=== PATIENT | male | born 2000 | race African-American/Black ===

== ENCOUNTER 2018-09-22 12:22 | Emergency (ER) | payer OTHER ==
[2018-09-22 12:32] VITALS: BP 130/78; PULSE 64; TEMP 98; BMI 33.2
--- NOTE | 2018-09-22 14:17 | PDOC ---
History of Present Illness - General Chief Complaint: Rectal Bleed Stated Complaint: ABD PAIN/ RECTAL BLEED Time Seen by Provider: 09/22/18 13:21 History Source: Patient Exam Limitations: No Limitations - History of Present Illness Travel History: No Initial Comments: 09/22/18 14:18 18-year-old male with no past medical history except for borderline Asperger's/ autism presents to ED for evaluation of blood noted on tissue 2 over the past 3 days. Patient states was initially itching prior to the onset of the bleeding and was unsure if he scratched himself. Patient denies recent constipation, placement of objects in his rectum, abdominal pain, fever, chills or nausea. Timing/Duration: reports: gone now Quality: reports: mild (Rectal itching) Activities at Onset: reports: none Aggravating Factors: improves with: None Alleviating Factors: improves with: None Past History - Travel Traveled outside of the country in the last 30 days: No - Past Medical History Allergies/Adverse Reactions: Allergies Allergy/AdvReac Type Severity Reaction Status Date / Time No Known Allergies Allergy Verified 09/22/18 13:47 - Suicide/Smoking/Psychosocial Hx Smoking History: Current every day smoker Have you smoked in the past 12 months: Yes Number of Cigarettes Smoked Daily: 1 Information on smoking cessation initiated: No Hx Alcohol Use: No Drug/Substance Use Hx: No Patient Lives Alone: No Lives with/in: parents Review of Systems - Review of Systems Able to Perform ROS?: Yes Constitutional: No: Symptoms Reported ABD/GI: Yes: Rectal Bleeding. No: Abdominal cramping Integumentary: No: Symptoms Reported Hematologic/Lymphatic: No: Symptoms Reported *Physical Exam - Vital Signs Last Vital Signs Temp Pulse Resp BP Pulse Ox 98 F 64 18 130/78 99 09/22/18 12:26 09/22/18 12:26 09/22/18 12:26 09/22/18 12:26 09/22/18 12:26 - Physical Exam General Appearance: Yes: Nourished, Appropriately Dressed. No: Apparent Distress Gastrointestinal/Abdominal: positive: Soft. negative: Tenderness Rectal Exam: positive: heme negative stool, normal rectal tone. negative: hemorrhoids Integumentary: positive: Normal Color, Warm, Moist Neurologic: positive: Normal Mood/Affect, Motor Strength 5/5 (ambulatory) Medical Decision Making - Medical Decision Making 09/22/18 14:09 Chief complaint: brb on tissue after cleaning himself 2 last episode 2 days ago has had 3 normal brown soft bms since. No abdominal pain or GI history Exam: No lesions fissures or open sores to her anus. No palpable hemorrhoids rectal vault smooth and firm. Guaiac negative with brown stool on withdrawn glove Plan: Discussed good hygiene and use of wet wipes if needed. GI referral given if symptoms continue or recur *DC/Admit/Observation/Transfer Diagnosis at time of Disposition: Rectal bleeding - Discharge Dispostion Disposition: HOME Condition at time of disposition: Good - Referrals Referrals: Devan Graf MD [Staff Physician] - - Patient Instructions Printed Discharge Instructions: DI for Rectal Bleeding Additional Instructions: At this time your test for blood in your stool was negative. Try using wet wipes to clean yourself after bowel movements and allowing area to try or pat dry with toilet paper after using wet wipes to ensure cleanliness. If symptoms recur please contact GI or return to ED if symptoms worsen - Post Discharge Activity
== END 2018-09-22 14:59 | disposition home or self-care (01) ==
LOC: JER 12:22
DX: K62.89 Other specified diseases of anus and rectum (principal)
CPT/HCPCS: 99282-25

== ENCOUNTER 2018-09-23 17:16 | Emergency (ER) | payer OTHER ==
--- NOTE | 2018-09-23 17:22 | PDOC ---
Rapid Medical Evaluation Time Seen by Provider: 09/23/18 17:18 Medical Evaluation: Allergies Allergy/AdvReac Type Severity Reaction Status Date / Time No Known Allergies Allergy Verified 09/22/18 13:47 09/23/18 17:18 Pt c/o: was here yesterday for 2 episodes of BRB on tissue after defecation but last 2 bms with no blood. This noted BRB on tissue and now with rectal and lower abd pain near rectum Pt on brief exam: vss Pt ordered for: cbc, comp, and abd ct w/contrast, iv Pt to proceed to the ED Discharge Disposition - Diagnosis Rectal or anal pain, Proctitis - Discharge Dispostion Disposition: HOME - Prescriptions Prescriptions: Hydrocortisone Acetate [Anusol Hc Suppository -] 25 mg RC BID #28 supp.rect - Referrals Referrals: Choco Galvez MD [Primary Care Provider] - Kem Brito DO [Staff Physician] - Call tomorrow Krunal Betts MD [Staff Physician] - Call tomorrow - Patient Instructions Printed Discharge Instructions: DI for Rectal Bleeding Additional Instructions: Use insulin as prescribed. It is very important that he follow with the colorectal surgeon. - Post Discharge Activity Work/School Note: Back to Work, Back to School
[2018-09-23 17:23] VITALS: BP 130/70; PULSE 81; TEMP 98.2; BMI 32.1
--- NOTE | 2018-09-23 21:43 | PDOC ---
*Physical Exam - Vital Signs Last Vital Signs Temp Pulse Resp BP Pulse Ox 98.2 F 81 16 130/70 97 09/23/18 17:20 09/23/18 17:20 09/23/18 17:20 09/23/18 17:20 09/23/18 17:20 Medical Decision Making - Medical Decision Making 09/23/18 21:42 Patient seen by the advanced practice provider under my direct supervision. Ancillary testing reviewed as necessary. I agree with plan as outlined by the advanced practice provider. *DC/Admit/Observation/Transfer Diagnosis at time of Disposition: Rectal or anal pain - Referrals Referrals: Choco Galvez MD [Primary Care Provider] - - Patient Instructions - Post Discharge Activity
--- NOTE | 2018-09-23 21:46 | PDOC ---
History of Present Illness - General Chief Complaint: Rectal Bleed Stated Complaint: FOLLOW UP/ GROIN PAIN Time Seen by Provider: 09/23/18 17:18 History Source: Patient - History of Present Illness Initial Comments: 09/23/18 22:07 18 year old male c/o rectal pain with 2 episode of bleeding today with defecation. denies abdominal pain, nausea/ vomiting, diarrhea. having soft stool. denies constipation. reports symptoms start 2 days ago. seen in the ED yesterday Past History - Past Medical History Allergies/Adverse Reactions: Allergies Allergy/AdvReac Type Severity Reaction Status Date / Time No Known Allergies Allergy Verified 09/22/18 13:47 Home Medications: Ambulatory Orders Hydrocortisone Acetate [Anusol Hc Suppository -] 25 mg RC BID #28 supp.rect 01/03 COPD: No - Immunization History Immunization Up to Date: Yes - Suicide/Smoking/Psychosocial Hx Smoking History: Never smoked Have you smoked in the past 12 months: Yes Number of Cigarettes Smoked Daily: 1 Information on smoking cessation initiated: No Hx Alcohol Use: No Drug/Substance Use Hx: No Review of Systems - Review of Systems Able to Perform ROS?: Yes Is the patient limited Irish proficient: No Constitutional: No: Symptoms Reported, See HPI, Chills, Diaphoresis, Fever, Loss of Appetite, Malaise, Night Sweats, Weakness, Weight Stable, Unintentional Wgt. Loss, Unexplained wgt Loss, Other ABD/GI: Yes: Rectal Bleeding. No: Symptoms Reported, See HPI, Abdominal Distended, Abd. Pain w/ defecation, Constipated, Diarrhea, Difficulty Swallowing , Nausea, Poor Appetite, Poor Fluid Intake, Vomiting, Indigestion, Abdominal cramping, Tarry Stools, Other *Physical Exam - Vital Signs Last Vital Signs Temp Pulse Resp BP Pulse Ox 98.2 F 81 16 130/70 97 09/23/18 17:20 09/23/18 17:20 09/23/18 17:20 09/23/18 17:20 09/23/18 17:20 - Physical Exam General Appearance: Yes: Appropriately Dressed Respiratory/Chest: positive: Lungs Clear, Normal Breath Sounds Rectal Exam: positive: normal rectal tone, other (no external hemorrhoids. likely internal hemorrhoids. ) Extremity: positive: Normal Capillary Refill Integumentary: positive: Normal Color, Dry, Warm Neurologic: positive: Fully Oriented, Alert, Normal Mood/Affect ED Treatment Course - LABORATORY CBC & Chemistry Diagram: 09/23/18 23:49 09/23/18 23:49 Progress Note - Progress Note Progress Note: A: rectal pain; proctitis P: cbc cmp stool occult. Medical Decision Making - Medical Decision Making 09/24/18 03:15 CT: no perianal abscess + proctitis 09/24/18 03:21 patient denies anal sex, anal foreign body to anus. no exposure to STI as per patient. will refer patient to colorectal surgery *DC/Admit/Observation/Transfer Diagnosis at time of Disposition: Rectal or anal pain, Proctitis - Discharge Dispostion Disposition: HOME - Prescriptions Prescriptions: Hydrocortisone Acetate [Anusol Hc Suppository -] 25 mg RC BID #28 supp.rect - Referrals Referrals: Choco Galvez MD [Primary Care Provider] - Kem Brito DO [Staff Physician] - Call tomorrow Krunal Betts MD [Staff Physician] - Call tomorrow - Patient Instructions Printed Discharge Instructions: DI for Rectal Bleeding Additional Instructions: Use insulin as prescribed. It is very important that he follow with the colorectal surgeon. - Post Discharge Activity Forms/Work/School Notes: Back to Work, Back to School
[2018-09-23] MEDS ORDERED: HYDROCORTISONE 2.5% TOPICAL CREAM 30 GM TUBE PR ONE (22:40)
[2018-09-23] MEDS ORDERED: ACETAMINOPHEN 325 MG TABLET (FP) PO ONE (23:15)
[2018-09-24] MEDS ORDERED: HYDROCORTISONE ACETATE 25 MG/SUPP.RECT PR ONE (00:07)
[2018-09-24 00:08] LABS: BASO % 0.1 % (0-2.0); EOS % 4.3 % (0-4.5); HEMATOCRIT 40.5 % (35.4-49); HEMOGLOBIN 13.4 GM/dL (11.7-16.9); LYMPH % 28.5 % (8-40); MCH 28.5 pg (25.7-33.7); MCHC 33.1 g/dl (32.0-35.9); MEAN CELL VOLUME 86.2 fl (80-96); MEAN PLT VOLUME 10.1 fl (7.5-11.1); MONO % 7.1 % (3.8-10.2); PLATELET COUNT 252 K/MM3 (134-434); RDW 12.5 % (11.9-15.9); WHITE BLOOD COUNT 8.9 K/mm3 (4.0-10.0)
[2018-09-24 00:29] LABS: BILIRUBIN,TOTAL 0.5 mg/dL (0.2-1); BLOOD UREA NITROGEN 9.3 mg/dL (7-18); CALCIUM 9.2 mg/dL (8.5-10.1); CREATININE 0.9 mg/dL (0.55-1.3); POTASSIUM 4.5 mmol/L (3.5-5.1); TOT PROT 8.1 g/dl (6.4-8.2)
[2018-09-24] MEDS ORDERED: ACETAMINOPHEN 325 MG TABLET (FP) ONE (00:51)
[2018-09-24] MEDS ORDERED: PHENYLEPHRINE 0.25%/STARCH 1 EACH SUPP.RECT RC ONE (00:51)
== END 2018-09-24 03:49 | disposition home or self-care (01) ==
LOC: JER 17:16
DX: K62.5 Hemorrhage of anus and rectum (principal)
CPT/HCPCS: 36415; 72193-TC; 80053; 82272; 85025; 99282-25

== ENCOUNTER 2020-05-14 21:38 | Emergency (ER) | payer OTHER ==
[2020-05-14 21:50] VITALS: BP 144/74; PULSE 85; TEMP 98.3; BMI 30.7
== END 2020-05-14 22:05 | disposition home or self-care (01) ==
LOC: JER 21:38 → JERFT 21:38
DX: K62.89 Other specified diseases of anus and rectum (principal)
CPT/HCPCS: 99283-25